=== PATIENT | female | born 1965 | race Asian ===

== ENCOUNTER 2022-08-18 10:02 | Emergency (ER) | payer OTHER ==
[2022-08-18] MEDS ORDERED: IBUPROFEN 600 MG TABLET (FP) PO ONE ×2 (10:08→10:16)
[2022-08-18 10:10] VITALS: BP 159/92; PULSE 85; RESP 20; TEMP 98.8; BMI 31.2
[2022-08-18] MEDS ORDERED: OFLOXACIN 0.3% OTIC SOLUTION 5 ML BOTTLE AD ONE (10:18)
== END 2022-08-18 11:27 | disposition home or self-care (01) ==
LOC: FER 10:02
DX: M25.561 Pain in right knee (principal); H66.91 Otitis media, unspecified, right ear
CPT/HCPCS: 73562-TC-RT-FY; 93971-TC; 99284-25

== ENCOUNTER 2023-04-25 08:50 | Emergency (ER) | payer OTHER ==
[2023-04-25 09:12] VITALS: BP 143/87; PULSE 79; RESP 16; TEMP 98.4; BMI 29.5
[2023-04-25] MEDS ORDERED: IBUPROFEN 600 MG TABLET (FP) PO ONE ×2 (09:16→09:20)
== END 2023-04-25 10:58 | disposition home or self-care (01) ==
LOC: FER 08:50
DX: R51.9 Headache, unspecified (principal)
CPT/HCPCS: 70450-TC; 99284-25